=== PATIENT | male | born 1975 | race Asian ===

== ENCOUNTER 2022-04-17 16:09 | Emergency (ER) | payer MEDICAID ==
[~2022-04-17] VITALS: Ht 175.3 cm; Wt 90.4 kg
[2022-04-17 16:28] VITALS: BP 113/78
[2022-04-17] MEDS ORDERED: CALC0.5C10 PO (16:30)
[2022-04-17] MEDS ORDERED: LEVO137T2 PO (16:30)
== END 2022-04-17 18:00 | disposition left against medical advice (07) ==
LOC: ER 16:09
DX: Z53.21 Procedure and treatment not carried out due to patient leaving prior to being seen by health care provider (principal)